=== PATIENT | female | born 1990 | race Caucasian/White ===

== ENCOUNTER → 2020-08-29 | Outpatient (CLI) | payer OTHER ==
[~2020-08-29] MED LIST: BENTYL 10MG10 MG/CAP PO; TRI-LO-MARZIA1 EACH PO; ZYRTEC 10MG10 MG PO
== END ==
LOC: COL.LAB 10:46
DX: Z20.828 Contact with and (suspected) exposure to other viral communicable diseases (principal)

== ENCOUNTER 2020-09-09 12:56 | Outpatient (CLI) | payer OTHER ==
[~2020-09-09] VITALS: Ht 165.1 cm; Wt 52.1 kg
[2020-09-09 13:37] LABS: HEMATOCRIT 39.7 % (37.0-47.0); HEMOGLOBIN 12.5 g/dl (12.5-16.0); MEAN CELL VOLUME 89 fl (80.0-100.0); MEAN CORPUSCULAR HEMOGLOBIN 28 pg (27.0-31.0); MEAN CORPUSCULAR HGB CONC 32 g/dl (33.0-37.0); MEAN PLATELET VOLUME 9.8 fl (7.4-10.4); PLATELET COUNT 348 K/mm3 (130-400); RED BLOOD COUNT 4.47 M/mm3 (4.10-5.30); REDCELL DISTRIBUTION WIDTH-CV 15.1 % (11.5-14.5)
[2020-09-09] MEDS ORDERED: TRI-LO-MARZIA1 EACH PO (14:00)
[2020-09-09] MEDS ORDERED: ZYRTEC 10MG10 MG PO (14:01)
[2020-09-09] MEDS ORDERED: BENTYL 10MG10 MG/CAP PO (14:01)
[2020-09-09 14:03] LABS: ALBUMIN 4.6 gm/dL (3.5-5.0); BILIRUBIN,TOTAL 0.3 mg/dL (0.0-1.0); CALCIUM 9.9 mg/dL (8.4-10.2); CREATININE, serum 0.9 (0.52-1.25); POTASSIUM 4.1 mmol/L (3.4-5.0); TOTAL PROTEIN 8.5 gm/dL (6.4-8.2)
[2020-09-09 14:25] VITALS: BP 107/62; PULSE 106; TEMP 99.2
[2020-09-09 15:05] VITALS: BP 116/78; PULSE 96; TEMP 99
[2020-09-09 15:35] VITALS: BP 110/60; PULSE 94; TEMP 98.6
[2020-09-09 16:05] VITALS: BP 100/60; PULSE 94; TEMP 98
[2020-09-09 16:35] VITALS: BP 106/60; PULSE 94; TEMP 98.2
--- NOTE | 2020-09-09 17:19 | NUR ---
Pt remained in dept following initial infusion of inflectra. No adverse reactions from infusion. INT is DC'd with catheter intact. Pt ambulates from dept with steady gait.
== END 2020-09-09 17:46 | disposition home or self-care (01) ==
LOC: EUO 12:56
PROVIDERS: Internal Medicine Gastroenterology
DX: K50.90 Crohn's disease, unspecified, without complications (principal); Z79.899 Other long term (current) drug therapy
CPT/HCPCS: J1200; J2930; J7050; Q5103

== ENCOUNTER 2020-11-04 13:58 | Outpatient (CLI) | payer OTHER ==
[~2020-11-04] VITALS: Ht 165.1 cm; Wt 53.8 kg
[2020-11-04 14:26] LABS: HEMOGLOBIN 11.7 g/dl (12.5-16.0); MEAN CELL VOLUME 92 fl (80.0-100.0); MEAN CORPUSCULAR HEMOGLOBIN 30 pg (27.0-31.0); MEAN CORPUSCULAR HGB CONC 32 g/dl (33.0-37.0); MEAN PLATELET VOLUME 10.1 fl (7.4-10.4); PLATELET COUNT 274 K/mm3 (130-400); RED BLOOD COUNT 3.97 M/mm3 (4.10-5.30); REDCELL DISTRIBUTION WIDTH-CV 15.9 % (11.5-14.5)
[2020-11-04 14:33] VITALS: BP 119/80; PULSE 88; TEMP 98.7
[2020-11-04 14:33] LABS: HEMATOCRIT 36.5 % (37.0-47.0)
[2020-11-04] MEDS ORDERED: VITAMIN D31000 I1 PO (14:38)
[2020-11-04 14:41] LABS: BILIRUBIN,TOTAL 0.2 mg/dL (0.0-1.0); CALCIUM 9.2 mg/dL (8.4-10.2); CREATININE, serum 0.91 (0.52-1.25); POTASSIUM 3.9 mmol/L (3.4-5.0); TOTAL PROTEIN 7.9 gm/dL (6.4-8.2)
[2020-11-04 15:15] VITALS: BP 131/79; PULSE 88
[2020-11-04 15:45] VITALS: BP 122/69; PULSE 87; TEMP 98.8
[2020-11-04 16:15] VITALS: BP 115/76; BP 122/71; PULSE 87; PULSE 93; TEMP 98.8
[2020-11-04 16:45] VITALS: BP 115/76; PULSE 93; TEMP 98.8
[2020-11-04 17:00] VITALS: BP 125/74; PULSE 92
--- NOTE | 2020-11-04 17:15 | NUR ---
IV DC'd with catheter intact, bleeding controlled at site. Pt ambulates out under own power with belongings.
== END 2020-11-04 17:17 | disposition home or self-care (01) ==
LOC: EUO 13:58
PROVIDERS: Internal Medicine Gastroenterology
DX: K50.90 Crohn's disease, unspecified, without complications (principal); Z79.899 Other long term (current) drug therapy
CPT/HCPCS: J1200; J2930; J7050; Q5103

== ENCOUNTER 2020-12-30 13:30 | Outpatient (CLI) | payer BC ==
[~2020-12-30] VITALS: Ht 165.1 cm; Wt 52.5 kg
[~2020-12-30 13:30] MED LIST changes: +VITAMIN D31000 I1 PO
[2020-12-30 13:57] LABS: HEMATOCRIT 39.5 % (37.0-47.0); HEMOGLOBIN 13.1 g/dl (12.5-16.0); MEAN CELL VOLUME 95 fl (80.0-100.0); MEAN CORPUSCULAR HEMOGLOBIN 32 pg (27.0-31.0); MEAN CORPUSCULAR HGB CONC 33 g/dl (33.0-37.0); MEAN PLATELET VOLUME 9.4 fl (7.4-10.4); PLATELET COUNT 359 K/mm3 (130-400); RED BLOOD COUNT 4.15 M/mm3 (4.10-5.30); REDCELL DISTRIBUTION WIDTH-CV 14.4 % (11.5-14.5)
[2020-12-30 13:58] VITALS: BP 115/65; PULSE 83
[2020-12-30 14:09] LABS: ALANINE AMINOTRANSFERASE 16 U/L (4-34); ALBUMIN 4.3 gm/dL (3.5-5.0); ALKALINE PHOSPHATASE 73 U/L (50-136); ANION GAP 8 mmol/L (7-16); AST,SGOT 30 U/L (15-37); BILIRUBIN,TOTAL < 0.1 mg/dL (0.0-1.0); BLOOD UREA NITROGEN 12 mg/dL (7-17); CALCIUM 9.1 mg/dL (8.4-10.2); CARBON DIOXIDE 26 mmol/L (22-30); CHLORIDE 103 mmol/L (98-107); CREATININE, serum 0.97 (0.52-1.25); GLUCOSE 90 mg/dL (74-106); POTASSIUM 3.8 mmol/L (3.4-5.0); SODIUM 137 mmol/L (137-145); TOTAL PROTEIN 8.2 gm/dL (6.4-8.2)
[2020-12-30 14:27] VITALS: BP 103/69; PULSE 79
[2020-12-30 14:35] VITALS: BP 126/65; PULSE 90; TEMP 98.1
[2020-12-30 15:27] VITALS: BP 104/69; PULSE 79
[2020-12-30 15:57] VITALS: BP 103/69; PULSE 68
== END 2020-12-30 17:29 | disposition home or self-care (01) ==
LOC: EUO 13:30
PROVIDERS: Internal Medicine Gastroenterology
DX: K50.90 Crohn's disease, unspecified, without complications (principal); Z79.899 Other long term (current) drug therapy
CPT/HCPCS: J1200; J2930; J7050; Q5103

== ENCOUNTER 2021-02-24 14:09 | Outpatient (CLI) | payer BC ==
[~2021-02-24] VITALS: Ht 165.1 cm; Wt 52.9 kg
[2021-02-24 14:41] LABS: HEMATOCRIT 37.6 % (37.0-47.0); HEMOGLOBIN 12.8 g/dl (12.5-16.0); MEAN CELL VOLUME 97 fl (80.0-100.0); MEAN CORPUSCULAR HEMOGLOBIN 33 pg (27.0-31.0); MEAN CORPUSCULAR HGB CONC 34 g/dl (33.0-37.0); PLATELET COUNT 265 K/mm3 (130-400); RED BLOOD COUNT 3.87 M/mm3 (4.10-5.30); REDCELL DISTRIBUTION WIDTH-CV 12.9 % (11.5-14.5)
[2021-02-24 14:56] LABS: BILIRUBIN,TOTAL 0.3 mg/dL (0.0-1.0); CALCIUM 9.2 mg/dL (8.4-10.2); CREATININE, serum 0.73 (0.52-1.25); POTASSIUM 3.8 mmol/L (3.4-5.0); TOTAL PROTEIN 7.8 gm/dL (6.4-8.2)
[2021-02-24 15:55] VITALS: BP 108/62; PULSE 82; TEMP 98
[2021-02-24 16:25] VITALS: BP 105/58; PULSE 77
[2021-02-24 16:55] VITALS: BP 104/63; PULSE 78
[2021-02-24 17:25] VITALS: BP 100/65; PULSE 68
[2021-02-24 17:55] VITALS: BP 98/60; PULSE 82
== END 2021-02-24 18:35 | disposition home or self-care (01) ==
LOC: EUO 14:09
PROVIDERS: Internal Medicine Gastroenterology
DX: K50.90 Crohn's disease, unspecified, without complications (principal); Z79.899 Other long term (current) drug therapy
CPT/HCPCS: J1200; J2930; J7050; Q5103

== ENCOUNTER 2021-04-21 13:44 | Outpatient (CLI) | payer BC ==
[2021-04-21 14:22] LABS: HEMATOCRIT 37.6 % (37.0-47.0); HEMOGLOBIN 12.8 g/dl (12.5-16.0); MEAN CELL VOLUME 97 fl (80.0-100.0); MEAN CORPUSCULAR HEMOGLOBIN 33 pg (27.0-31.0); MEAN CORPUSCULAR HGB CONC 34 g/dl (33.0-37.0); MEAN PLATELET VOLUME 10.1 fl (7.4-10.4); PLATELET COUNT 227 K/mm3 (130-400); RED BLOOD COUNT 3.87 M/mm3 (4.10-5.30); REDCELL DISTRIBUTION WIDTH-CV 12.2 % (11.5-14.5)
[2021-04-21 14:30] LABS: BILIRUBIN,TOTAL 0.4 mg/dL (0.0-1.0); CALCIUM 9.6 mg/dL (8.4-10.2); CREATININE, serum 0.73 (0.52-1.25); TOTAL PROTEIN 7.8 gm/dL (6.4-8.2)
[2021-04-21 15:04] VITALS: BP 119/71; PULSE 84; TEMP 98.5
[2021-04-21 15:12] VITALS: BP 118/71; PULSE 88
[2021-04-21 15:42] VITALS: BP 112/74; PULSE 86
[2021-04-21 16:12] VITALS: BP 107/67; PULSE 76
[2021-04-21 16:45] VITALS: BP 110/63; PULSE 80; TEMP 98.5
[2021-04-21 17:12] VITALS: BP 114/74; PULSE 91; TEMP 98.5
== END 2021-04-21 17:20 | disposition home or self-care (01) ==
LOC: EUO 13:44
PROVIDERS: Internal Medicine Gastroenterology
DX: K50.90 Crohn's disease, unspecified, without complications (principal); Z79.899 Other long term (current) drug therapy
CPT/HCPCS: J1200; J2930; J7050; Q5103

== ENCOUNTER 2021-06-16 17:01 | Outpatient (CLI) | payer BC ==
[~2021-06-16] VITALS: Ht 165.1 cm; Wt 54.5 kg
[2021-06-16 15:25] LABS: HEMOGLOBIN 12.5 g/dl (12.5-16.0); MEAN CELL VOLUME 97 fl (80.0-100.0); MEAN CORPUSCULAR HEMOGLOBIN 33 pg (27.0-31.0); MEAN CORPUSCULAR HGB CONC 34 g/dl (33.0-37.0); MEAN PLATELET VOLUME 10.1 fl (7.4-10.4); PLATELET COUNT 251 K/mm3 (130-400); RED BLOOD COUNT 3.79 M/mm3 (4.10-5.30); REDCELL DISTRIBUTION WIDTH-CV 12.3 % (11.5-14.5)
[2021-06-16 15:26] LABS: HEMATOCRIT 36.7 % (37.0-47.0)
[2021-06-16 15:40] LABS: ALBUMIN 4.1 gm/dL (3.5-5.0); BILIRUBIN,TOTAL 0.2 mg/dL (0.0-1.0); CALCIUM 9.1 mg/dL (8.4-10.2); CREATININE, serum 0.78 (0.52-1.25); TOTAL PROTEIN 7.6 gm/dL (6.4-8.2)
[2021-06-16 17:26] VITALS: BP 122/80; PULSE 84; TEMP 98.8
[2021-06-16 17:30] VITALS: BP 120/71; PULSE 83
[2021-06-16 18:00] VITALS: BP 111/71; PULSE 78
[2021-06-16 18:30] VITALS: BP 110/66; PULSE 77
[2021-06-16 19:00] VITALS: BP 109/69; PULSE 96
== END 2021-06-23 11:07 ==
LOC: EUO 17:01
PROVIDERS: Internal Medicine Gastroenterology
DX: K50.90 Crohn's disease, unspecified, without complications (principal); Z79.899 Other long term (current) drug therapy
CPT/HCPCS: J1200; J2930; J7050; Q5103

== ENCOUNTER 2021-08-11 14:59 | Outpatient (CLI) | payer BC ==
[~2021-08-11] VITALS: Ht 165.1 cm; Wt 54.5 kg
[2021-08-11 15:23] LABS: BASO % 0.6 % (0.0-2.0); EOS # 0.1 K/mm3 (0.0-0.7); EOS % 1.2 % (0-4.0); GRAN # 2.5 K/mm3 (1.4-6.5); GRAN % 48.5 % (42.2-75.2); HEMOGLOBIN 13.3 g/dl (12.5-16.0); LYMPH # 2.1 K/mm3 (1.2-3.4); LYMPH % 41.4 % (20.0-51.0); MEAN CELL VOLUME 99 fl (80.0-100.0); MEAN CORPUSCULAR HEMOGLOBIN 33 pg (27.0-31.0); MEAN CORPUSCULAR HGB CONC 33 g/dl (33.0-37.0); MEAN PLATELET VOLUME 10.1 fl (7.4-10.4); MONO # 0.4 K/mm3 (0.1-0.6); MONO % 7.9 % (1.7-9.3); PLATELET COUNT 248 K/mm3 (130-400); RED BLOOD COUNT 4.05 M/mm3 (4.10-5.30); REDCELL DISTRIBUTION WIDTH-CV 11.9 % (11.5-14.5)
[2021-08-11 15:40] LABS: ALBUMIN 3.9 gm/dL (3.5-5.0); BILIRUBIN,TOTAL 0.3 mg/dL (0.2-1.2); CALCIUM 9.8 mg/dL (8.4-10.2); CREATININE, serum 0.79 mg/dL (0.57-1.11); POTASSIUM 3.5 mmol/L (3.5-4.5)
[2021-08-11 15:56] VITALS: BP 134/75; PULSE 82; TEMP 98
[2021-08-11 16:30] VITALS: BP 124/69; PULSE 84; TEMP 98
[2021-08-11 17:00] VITALS: BP 106/68; PULSE 73; TEMP 98
[2021-08-11 17:30] VITALS: BP 110/63; PULSE 82; TEMP 98
[2021-08-11 18:04] VITALS: BP 104/74; PULSE 78; TEMP 98
== END 2021-08-11 18:05 | disposition home or self-care (01) ==
LOC: EUO 14:59
PROVIDERS: Internal Medicine Gastroenterology
DX: K50.90 Crohn's disease, unspecified, without complications (principal); Z79.899 Other long term (current) drug therapy
CPT/HCPCS: J1200; J2930; J7050; Q5103

== ENCOUNTER → 2021-10-04 | Outpatient (CLI) | payer BC ==
[~2021-10-04] VITALS: Ht 165.1 cm; Wt 53.4 kg
[2021-10-04 15:34] LABS: ALBUMIN 3.8 gm/dL (3.5-5.0); BILIRUBIN,TOTAL 0.4 mg/dL (0.2-1.2); CREATININE, serum 0.82 mg/dL (0.57-1.11); POTASSIUM 3.6 mmol/L (3.5-4.5); TOTAL PROTEIN 7.6 gm/dL (6.2-8.1)
[2021-10-04 15:39] LABS: BASO # 0.1 K/mm3 (0.0-0.2); EOS # 0.1 K/mm3 (0.0-0.7); EOS % 1.9 % (0.0-4.0); GRAN # 2.6 K/mm3 (1.4-6.5); GRAN % 41.4 % (42.2-75.2); HEMATOCRIT 38.8 % (37.0-47.0); LYMPH % 48.9 % (20.0-51.0); MEAN CELL VOLUME 96 fl (80.0-100.0); MEAN CORPUSCULAR HEMOGLOBIN 32 pg (27-31); MEAN CORPUSCULAR HGB CONC 34 g/dl (33.0-37.0); MEAN PLATELET VOLUME 10.6 fl (7.4-10.4); MONO # 0.4 K/mm3 (0.1-0.6); MONO % 6.8 % (1.7-9.3); PLATELET COUNT 263 K/mm3 (130-400); RED BLOOD COUNT 4.05 M/mm3 (4.10-5.30)
[2021-10-04 17:15] VITALS: BP 113/72; PULSE 78; TEMP 98.4
[2021-10-04 17:45] VITALS: PULSE 79
[2021-10-04 18:15] VITALS: BP 109/75; PULSE 74
[2021-10-04 18:45] VITALS: BP 105/68; PULSE 72
[2021-10-04 19:15] VITALS: BP 111/71; PULSE 72
== END ==
LOC: EUO 14:59
PROVIDERS: Internal Medicine Gastroenterology
DX: K50.90 Crohn's disease, unspecified, without complications (principal)
CPT/HCPCS: J1200; J2930; J7050; Q5103

== ENCOUNTER 2021-11-29 14:43 | Outpatient (CLI) | payer BC ==
[~2021-11-29] VITALS: Ht 165.1 cm; Wt 53.0 kg
[2021-11-29 15:16] LABS: BASO % 0.7 % (0.0-2.0); EOS % 0.5 % (0.0-4.0); GRAN # 3.2 K/mm3 (1.4-6.5); GRAN % 52.9 % (42.2-75.2); HEMATOCRIT 38.2 % (37.0-47.0); HEMOGLOBIN 13.2 g/dl (12.5-16.0); LYMPH # 2.4 K/mm3 (1.2-3.4); LYMPH % 39.2 % (20.0-51.0); MEAN CELL VOLUME 95 fl (80.0-100.0); MEAN CORPUSCULAR HEMOGLOBIN 33 pg (27-31); MEAN CORPUSCULAR HGB CONC 35 g/dl (33.0-37.0); MEAN PLATELET VOLUME 10.3 fl (7.4-10.4); MONO # 0.4 K/mm3 (0.1-0.6); MONO % 6.5 % (1.7-9.3); PLATELET COUNT 259 K/mm3 (130-400); RED BLOOD COUNT 4.02 M/mm3 (4.10-5.30); REDCELL DISTRIBUTION WIDTH-CV 12.3 % (11.5-14.5)
[2021-11-29 15:33] LABS: ALBUMIN 4.1 gm/dL (3.5-5.0); BILIRUBIN,TOTAL 0.5 mg/dL (0.2-1.2); CALCIUM 9.3 mg/dL (8.4-10.2); CREATININE, serum 0.76 mg/dL (0.57-1.11); POTASSIUM 3.8 mmol/L (3.5-4.5); TOTAL PROTEIN 7.8 gm/dL (6.2-8.1)
[2021-11-29] MEDS ORDERED: [UNRECOGNIZED DRUG - OTHER] (15:39)
--- NOTE | 2021-11-29 17:00 | NUR ---
Wanda RN talked with Taryn RAMIREZ of facility, reported on cath susy that was given, requested we leave port accessed for IV Dr florencio eller recieved to leave port accessed, After blood infused, flushed port with 20cc of saline after saline flush of line and blood return was present, then flushed with heparin, report sheet sent with pt on what was done to port today in [place], pt then discharged via his own electric w/c with his 02 on to front entrance for ride
[2021-11-29 17:10] VITALS: BP 118/55; PULSE 55; TEMP 98.6
[2021-11-29 17:40] VITALS: BP 120/52; PULSE 63; TEMP 98.6
[2021-11-29 18:10] VITALS: BP 115/58; PULSE 68; TEMP 98.6
[2021-11-29 18:39] VITALS: BP 102/70; PULSE 86; TEMP 98.6
[2021-11-29 19:10] VITALS: BP 106/68; PULSE 72; TEMP 98.6
== END 2021-11-29 19:15 | disposition home or self-care (01) ==
LOC: EUO 14:43
PROVIDERS: Internal Medicine Gastroenterology
DX: K50.80 Crohn's disease of both small and large intestine without complications (principal)
CPT/HCPCS: J1200; J2930; J7050; Q5103

== ENCOUNTER 2022-01-24 14:31 | Outpatient (CLI) | payer BC ==
[2022-01-24] VITALS (7 sets, daily range): BP systolic 102–112; BP diastolic 63–76; PULSE 72–94; TEMP 98.3
[~2022-01-24] VITALS: Ht 165.1 cm; Wt 88.4 kg
[~2022-01-24 14:31] MED LIST changes: +[UNRECOGNIZED DRUG - OTHER]
[2022-01-24 15:02] LABS: BASO % 0.6 % (0.0-2.0); EOS # 0.1 K/mm3 (0.0-0.7); GRAN # 4.2 K/mm3 (1.4-6.5); GRAN % 58.7 % (42.2-75.2); HEMOGLOBIN 12.3 g/dl (12.5-16.0); LYMPH # 2.4 K/mm3 (1.2-3.4); LYMPH % 33.5 % (20.0-51.0); MEAN CELL VOLUME 96 fl (80.0-100.0); MEAN CORPUSCULAR HEMOGLOBIN 33 pg (27-31); MEAN CORPUSCULAR HGB CONC 34 g/dl (33.0-37.0); MEAN PLATELET VOLUME 10.1 fl (7.4-10.4); MONO # 0.4 K/mm3 (0.1-0.6); MONO % 5.9 % (1.7-9.3); PLATELET COUNT 240 K/mm3 (130-400); RED BLOOD COUNT 3.72 M/mm3 (4.10-5.30); REDCELL DISTRIBUTION WIDTH-CV 12.3 % (11.5-14.5)
[2022-01-24 15:03] LABS: HEMATOCRIT 35.8 % (37.0-47.0)
[2022-01-24 15:19] LABS: BILIRUBIN,TOTAL 0.4 mg/dL (0.2-1.2); CALCIUM 8.9 mg/dL (8.4-10.2); CREATININE, serum 0.82 mg/dL (0.57-1.11); POTASSIUM 3.8 mmol/L (3.5-4.5); TOTAL PROTEIN 7.2 gm/dL (6.2-8.1)
== END 2022-01-26 10:56 ==
LOC: EUO 14:31
PROVIDERS: Internal Medicine Gastroenterology
DX: K50.80 Crohn's disease of both small and large intestine without complications (principal)
CPT/HCPCS: J1200; J2920; J7050; Q5103

== ENCOUNTER 2022-03-21 12:57 | Outpatient (CLI) | payer BC ==
[~2022-03-21] VITALS: Ht 165.1 cm; Wt 31.8 kg
[2022-03-21 13:31] LABS: BASO # 0.1 K/mm3 (0.0-0.2); BASO % 0.7 % (0.0-2.0); EOS # 0.1 K/mm3 (0.0-0.7); EOS % 0.9 % (0.0-4.0); GRAN # 4.4 K/mm3 (1.4-6.5); GRAN % 58.2 % (42.2-75.2); HEMATOCRIT 40.7 % (37.0-47.0); HEMOGLOBIN 13.9 g/dl (12.5-16.0); LYMPH # 2.6 K/mm3 (1.2-3.4); LYMPH % 34.6 % (20.0-51.0); MEAN CELL VOLUME 96 fl (80.0-100.0); MEAN CORPUSCULAR HEMOGLOBIN 33 pg (27-31); MEAN CORPUSCULAR HGB CONC 34 g/dl (33.0-37.0); MEAN PLATELET VOLUME 10.1 fl (7.4-10.4); MONO # 0.4 K/mm3 (0.1-0.6); MONO % 5.5 % (1.7-9.3); PLATELET COUNT 264 K/mm3 (130-400); RED BLOOD COUNT 4.25 M/mm3 (4.10-5.30); REDCELL DISTRIBUTION WIDTH-CV 12.3 % (11.5-14.5)
[2022-03-21 13:48] LABS: ALBUMIN 3.9 gm/dL (3.5-5.0); BILIRUBIN,TOTAL 0.3 mg/dL (0.2-1.2); CALCIUM 9.2 mg/dL (8.4-10.2); CREATININE, serum 0.8 mg/dL (0.57-1.11); POTASSIUM 4.1 mmol/L (3.5-4.5)
[2022-03-21 14:05] VITALS: BP 95/64; PULSE 73; TEMP 99.2
[2022-03-21 15:09] VITALS: BP 118/79; PULSE 106; TEMP 98.4
[2022-03-21 15:39] VITALS: BP 107/69; PULSE 97; TEMP 98.6
[2022-03-21 16:09] VITALS: BP 116/74; PULSE 88
--- NOTE | 2022-03-21 16:26 | NUR ---
Report from JOSIE Murphy.
[2022-03-21 16:39] VITALS: BP 112/75; PULSE 84
[2022-03-21 16:55] VITALS: BP 99/65; PULSE 82
== END 2022-03-21 16:59 ==
LOC: EUO 12:57
PROVIDERS: Internal Medicine Gastroenterology
DX: K50.80 Crohn's disease of both small and large intestine without complications (principal)
CPT/HCPCS: J1200; J2930; J7050; Q5103

== ENCOUNTER 2022-05-21 13:48 | Outpatient (CLI) | payer BC ==
[~2022-05-21] VITALS: Ht 165.1 cm; Wt 51.3 kg
[2022-05-21 14:29] LABS: BASO # 0.1 K/mm3 (0.0-0.2); BASO % 0.7 % (0.0-2.0); EOS # 0.1 K/mm3 (0.0-0.7); EOS % 0.9 % (0.0-4.0); GRAN # 5.3 K/mm3 (1.4-6.5); HEMATOCRIT 40.7 % (37.0-47.0); HEMOGLOBIN 13.8 g/dl (12.5-16.0); LYMPH # 2.8 K/mm3 (1.2-3.4); LYMPH % 32.4 % (20.0-51.0); MEAN CELL VOLUME 97 fl (80.0-100.0); MEAN CORPUSCULAR HEMOGLOBIN 33 pg (27-31); MEAN CORPUSCULAR HGB CONC 34 g/dl (33.0-37.0); MEAN PLATELET VOLUME 10.3 fl (7.4-10.4); MONO # 0.4 K/mm3 (0.1-0.6); MONO % 4.9 % (1.7-9.3); PLATELET COUNT 253 K/mm3 (130-400); RED BLOOD COUNT 4.18 M/mm3 (4.10-5.30); REDCELL DISTRIBUTION WIDTH-CV 12.1 % (11.5-14.5)
[2022-05-21 14:44] LABS: ALBUMIN 4.1 gm/dL (3.5-5.0); BILIRUBIN,TOTAL 0.4 mg/dL (0.2-1.2); CALCIUM 9.7 mg/dL (8.4-10.2); CREATININE, serum 0.82 mg/dL (0.57-1.11); TOTAL PROTEIN 8.1 gm/dL (6.2-8.1)
[2022-05-21 14:57] VITALS: BP 106/74; PULSE 83; TEMP 98.5
[2022-05-21] MEDS ORDERED: INFLECTRA100 MG PO (15:02)
[2022-05-21 15:15] VITALS: BP 103/68; PULSE 79
[2022-05-21 15:30] VITALS: BP 106/71; PULSE 90
[2022-05-21 16:00] VITALS: BP 102/65; PULSE 85
[2022-05-21 16:30] VITALS: BP 98/59; PULSE 78
[2022-05-21 17:00] VITALS: BP 102/61; PULSE 87; TEMP 98.3
== END 2022-05-21 17:24 | disposition home or self-care (01) ==
LOC: EUO 13:48
PROVIDERS: Internal Medicine Gastroenterology
DX: K50.80 Crohn's disease of both small and large intestine without complications (principal)
CPT/HCPCS: J1200; J2920; J7050; Q5103